=== PATIENT | male | born 1995 | race Caucasian/White ===

== ENCOUNTER 2021-06-11 08:58 | Outpatient (RCR) | payer OTHER | END 2021-07-08 | disposition home or self-care (01) | LOC: OT | DX: S52.572A Other intraarticular fracture of lower end of left radius, initial encounter for closed fracture (principal) ==

== ENCOUNTER 2021-07-15 07:53 | Outpatient (RCR) | payer OTHER | END 2021-08-08 | disposition home or self-care (01) | LOC: OT | DX: S52.572D Other intraarticular fracture of lower end of left radius, subsequent encounter for closed fracture with routine healing (principal); X58.XXXD Exposure to other specified factors, subsequent encounter ==

== ENCOUNTER 2021-08-13 08:00 | Outpatient (RCR) | payer OTHER | END 2021-09-07 | disposition still patient (30) | LOC: OT | DX: S52.572A Other intraarticular fracture of lower end of left radius, initial encounter for closed fracture (principal) ==

== ENCOUNTER 2021-09-10 07:59 | Outpatient (RCR) | payer OTHER | END 2021-10-08 | disposition still patient (30) | LOC: OT | DX: S52.572D Other intraarticular fracture of lower end of left radius, subsequent encounter for closed fracture with routine healing (principal); X58.XXXD Exposure to other specified factors, subsequent encounter ==

== ENCOUNTER 2021-10-15 16:00 | Outpatient (RCR) | payer OTHER | END 2021-11-07 | disposition home or self-care (01) | LOC: OT | DX: S52.572D Other intraarticular fracture of lower end of left radius, subsequent encounter for closed fracture with routine healing (principal); X58.XXXD Exposure to other specified factors, subsequent encounter ==

== ENCOUNTER 2021-11-08 10:03 | Outpatient (RCR) | payer OTHER | END 2021-12-08 | disposition home or self-care (01) | LOC: OT | DX: S52.572D Other intraarticular fracture of lower end of left radius, subsequent encounter for closed fracture with routine healing (principal); X58.XXXD Exposure to other specified factors, subsequent encounter ==

== ENCOUNTER → 2022-01-08 | Outpatient (RCR) | payer OTHER | LOC: OT | DX: S52.572A Other intraarticular fracture of lower end of left radius, initial encounter for closed fracture (principal) ==

== ENCOUNTER 2022-03-11 08:00 | Outpatient (RCR) | payer OTHER | END 2022-04-09 | disposition still patient (30) | LOC: OT | DX: S52.572D Other intraarticular fracture of lower end of left radius, subsequent encounter for closed fracture with routine healing (principal); X58.XXXD Exposure to other specified factors, subsequent encounter ==

== ENCOUNTER → 2023-06-05 | Outpatient (CLI) | payer BC | LOC: RAD 09:43 | DX: R19.01 Right upper quadrant abdominal swelling, mass and lump (principal) ==

== ENCOUNTER 2024-01-22 08:00 | Outpatient (RCR) | payer BC | END 2024-02-08 | disposition home or self-care (01) | LOC: PT | DX: S39.011D Strain of muscle, fascia and tendon of abdomen, subsequent encounter (principal); X58.XXXD Exposure to other specified factors, subsequent encounter ==